=== PATIENT | male | born 1995 | race Asian ===

== ENCOUNTER 2018-06-05 01:15 | Emergency (ER) | payer OTHER ==
[~2018-06-05] VITALS: Ht 172.7 cm; Wt 65.8 kg
[2018-06-05 01:23] VITALS: Ht 172.7 cm; Wt 65.8 kg
[2018-06-05 02:26] VITALS: BP 102/63
== END 2018-06-05 02:26 | disposition home or self-care (01) ==
LOC: ED 01:15
DX: S61.213A Laceration without foreign body of left middle finger without damage to nail, initial encounter (principal); S61.205A Unspecified open wound of left ring finger without damage to nail, initial encounter; S21.101A Unspecified open wound of right front wall of thorax without penetration into thoracic cavity, initial encounter; W54.0XXA Bitten by dog, initial encounter; Y93.89 Activity, other specified; Y92.89 Other specified places as the place of occurrence of the external cause; Y99.9 Unspecified external cause status
CPT/HCPCS: 90715